=== PATIENT | female | born 1995 | race Caucasian/White ===

== ENCOUNTER → 2021-02-26 | Outpatient (REF) | payer OTHER | LOC: M PLALAB 09:41 | PROVIDERS: ATTEND Advanced Practice Midwife | DX: O36.80X0 Pregnancy with inconclusive fetal viability, not applicable or unspecified (principal); Z3A.00 Weeks of gestation of pregnancy not specified ==

== ENCOUNTER → 2021-02-28 | Outpatient (CLI) | payer OTHER | LOC: M LAB 10:14 | PROVIDERS: ATTEND Advanced Practice Midwife | DX: O36.80X0 Pregnancy with inconclusive fetal viability, not applicable or unspecified (principal); Z3A.00 Weeks of gestation of pregnancy not specified ==

== ENCOUNTER → 2021-03-12 | Outpatient (CLI) | payer OTHER | LOC: M LABSMTC 10:11 | PROVIDERS: ATTEND Anesthesiology | DX: Z01.818 Encounter for other preprocedural examination (principal); Z11.52 Encounter for screening for COVID-19 ==

== ENCOUNTER 2021-03-17 11:39 | Day surgery (SDC) | payer OTHER ==
[~2021-03-17] VITALS: Ht 162.6 cm; Wt 59.4 kg
[~2021-03-17 11:39] MED LIST: KETOROLAC 60MG 2ML VIAL As Ordered ONE; LIDOCAINE 2% 100MG/5ML SDV (FOR ANES.) As Ordered ONE; LR 1,000 ML IV ONE; MIDAZOLAM INJ 2MG/2ML VIAL (J2250 PER 1MG) As Ordered ONE; ONDANSETRON 4MG/2ML VIAL As Ordered ONE; dexameTHASONE 4 MG/ML 1ML VIAL (J1100 PER 1MG) As Ordered ONE; fentaNYL 100 MCG/2 ML INJECTION (J3010) As Ordered ONE; propofoL 200 MG/20 ML VIAL As Ordered ONE
[2021-03-17 12:19] LABS: HEMATOCRIT 37.4 % (36.0-47.0); HEMOGLOBIN 12.6 g/dl (12.0-15.5)
[2021-03-17] MEDS ORDERED: LIDOCAINE 1% MDV 20ML VIAL As Ordered ONE (14:02)
[2021-03-17] MEDS ORDERED: SILVER NITRATE APPLICATOR As Ordered ONE (14:02)
[2021-03-17] MEDS ORDERED: DOXYCYCLINE HYCLATE 100MG/10ML VIAL As Ordered ONE (14:23)
[2021-03-17] MEDS ORDERED: ePHEDrine SULFATE 25 MG/5 ML(5MG/ML) SYRINGE As Ordered ONE (14:43)
[2021-03-17] MEDS ORDERED: PHENYLephrine 500MCG 5ML (100MCG/ML) SYRINGE As Ordered ONE (14:47)
[2021-03-17] MEDS ORDERED: ACETAMINOPHEN 1000MG 100ML IV BTL (OFIRMEV) (J0131 PER 10MG) As Ordered ONE (14:51)
[2021-03-17] MEDS ORDERED: METHYLERGONOVINE MALEATE 0.2 MG/ML VIAL (J2210) As Ordered ONE (15:01)
[2021-03-17] MEDS ORDERED: fentaNYL 100 MCG/2 ML INJECTION (J3010) IV PRN (15:35)
[2021-03-17] MEDS ORDERED: ONDANSETRON 4MG/2ML VIAL IV PRN (15:35)
[2021-03-17] MEDS ORDERED: LR 1,000 ML IV SCH (15:35)
[2021-03-17] MEDS ORDERED: HYDROMORPHONE HCL 0.5 MG/ 0.5 ML SYRINGE (J1170 PER 1) IV PRN (15:35)
[2021-03-17] MEDS ORDERED: oxyCODONE 5MG TAB PO PRN (15:35)
[2021-03-17 16:00] VITALS: BP 127/60
--- NOTE | 2021-03-18 09:11 | RO ---
OPERATIVE NOTE CLINICAL SERVICE: Gynecology DATE OF OPERATION: 03/17/2021 PREOPERATIVE DIAGNOSIS: Missed . POSTOPERATIVE DIAGNOSIS: Missed . PROCEDURE/OPERATION PERFORMED: Suction dilatation and curettage. SURGEON: Esme Arora MD DATA COMMUNICATIONS TECHNICIAN: ANESTHESIA: General with laryngeal mask airway (LMA). INDICATION FOR OPERATION: Lady is a 25-year-old G1 now P0010 who experienced a missed which was diagnosed in clinic. She presented once and was noted to have an approximately 7-week size fetus with no cardiac activity and then a week later had a repeated ultrasound and still with no progression in the size and still no cardiac activity and, at that point, missed was diagnosed. She was counseled on options for expectant management versus medical management versus surgical and ultimately elected for surgical management. MATERIAL FORWARDED TO THE LABORATORY FOR EXAMINATION: Intrauterine contents. DESCRIPTION OF FINDINGS: Cervix initially was closed. There was a moderate amount of blood and tissue extracted from the uterus. INFECTION CLASSIFICATION: 2. ESTIMATED BLOOD LOSS: 20 mL. URINE OUTPUT BY IN-AND-OUT CATHETERIZATION: 200 mL. IV FLUIDS: 200 mL of lactated Ringer's. DESCRIPTION OF PROCEDURE: After obtaining informed consent, patient was taken to the operating room, where she underwent general anesthesia. She was placed in low lithotomy position and the perineum and vagina were prepped and draped in sterile fashion. She received 100 mg of IV doxycycline prior to the procedure. A bivalve speculum was inserted and the anterior segment of the cervix was grasped with a single-tooth tenaculum. The cervix was sequentially dilated with Ron dilators. The uterus sounded to 9 cm. A 7-mm suction curette was introduced to the fundus of the uterus. Suction was activated at 60 cm of water. Approximately three passes of suction curettage were used to remove the intrauterine contents. After the first pass, there was brisk bleeding so I requested that anesthesia give 0.2 mg of IM Methergine times one, and I removed the tenaculum and speculum from the vagina and performed bimanual massage which gained good hemostasis. I then replaced the speculum, replaced the tenaculum on the anterior aspect of the cervix and then I used a sharp curette to obtain good cry in 360 degrees. One final pass with the suction curette ensured removal of all intrauterine contents. Hemostasis was noted after the procedure. Tenaculum was removed. There was hemostasis at the tenaculum sites. Richards speculum was removed. Patient was transferred to the recovery room in good condition. All counts were correct times two. She is Rh positive.
== END 2021-03-17 20:24 | disposition home or self-care (01) ==
LOC: M SDC 11:39
PROVIDERS: ATTEND Obstetrics & Gynecology
DX: O02.1 Missed abortion (principal)
CPT/HCPCS: 36415; 59820; 85014; 85018; 86850; 86900; 86901; 88305; J0131; J1100; J1885; J2210; J2250; J2370; J2405; J3010

== ENCOUNTER → 2021-04-01 | Outpatient (REF) | payer OTHER | LOC: M PLALAB 12:35 | PROVIDERS: ATTEND Obstetrics & Gynecology | DX: Z87.59 Personal history of other complications of pregnancy, childbirth and the puerperium (principal) ==

== ENCOUNTER → 2021-06-29 | Outpatient (CLI) | payer OTHER ==
[2021-06-29 12:42] LABS: PROGESTERONE 21.63 NG/ML
== END ==
LOC: M LAB 11:02
PROVIDERS: ATTEND Obstetrics & Gynecology
DX: Z32.00 Encounter for pregnancy test, result unknown (principal)

== ENCOUNTER → 2021-07-01 | Outpatient (CLI) | payer OTHER | LOC: M LAB 10:49 | PROVIDERS: ATTEND Obstetrics & Gynecology | DX: O02.0 Blighted ovum and nonhydatidiform mole (principal) ==